=== PATIENT | male | born 1975 | race Caucasian/White ===

== ENCOUNTER 2019-07-31 21:09 | Emergency (ER) | payer BC ==
--- OUTSIDE RECORDS SUMMARY | 2019-07-31 21:10 | XMS REPORT | Clinical Summary ---
:1975 Author Organization [facility] Address [address] [place] [id number] Care Team Providers Name Role Phone Asked, No Pcp Primary Care Provider Unavailable Allergies Not on File Medications Not on file Active Problems Not on file Social History Tobacco Use Types Packs/Day Years Used Date Never Assessed Sex Assigned at Date Recorded Not on file Job Start Date Occupation Industry Not on file Not on file Not on file Travel History Travel Start Travel End No recent travel history available. 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
[2019-07-31 22:52] LABS: Absolute Lymphocytes (CBC) 1.2 K/uL (0.7-4.9); Basophils % 0.3 % (0-1.3); Hematocrit 40.7 % (39.6-49.0); Lymphocytes % 11.9 % (15.3-44.8); MPV 8.2 fL (7.6-11.3); RBC Red Blood Cell Count 4.71 M/uL (4.33-5.43)
[2019-07-31] MEDS ORDERED: PANTOPRAZOLE 40 MG INJ ONE ×2 (22:55→23:31)
[2019-07-31] MEDS ORDERED: NA CHLORIDE 0.9% 1,000 ML ONE ×2 (22:55→23:43)
[2019-07-31] MEDS ORDERED: ONDANSETRON 4 MG/2 ML VIAL ONE (22:55)
[2019-07-31 23:14] LABS: ALT/SGPT 49 U/L (12-78); AST/SGOT 23 U/L (15-37); Albumin 3.6 g/dL (3.4-5.0); Alkaline Phosphatase 52 U/L (45-117); BUN Blood Urea Nitrogen 24 mg/dL (7-18); Bicarbonate 23 mmol/L (21-32); Bilirubin Direct < 0.1 mg/dL (0-0.2); Bilirubin Total 0.3 mg/dL (0.2-1.0); Glucose Level 111 mg/dL (74-106); NT PRO-BNP 10 pg/mL (<125); Potassium 4.2 mmol/L (3.5-5.1); Protein, Total 6.3 g/dL (6.4-8.2); Sodium Level 139 mmol/L (136-145); Troponin (Emerg Dept Use Only) < 0.02 ng/mL (0.0-0.045)
[2019-07-31 23:19] LABS: Protime INR 1.01
[2019-07-31] MEDS ORDERED: NA CHLORIDE 0.9% 250 ML ONE (23:31)
--- NOTE | 2019-08-01 00:02 | EDPHYS ---
Physician Documentation [facility] Name: Ezequiel Prasad Age: 44 yrs Sex: Male : 1975 Arrival Date: 07/31/2019 Time: 21:12 Bed 4 Private MD: ANNEMARIE Physician Eris Amador HPI: 07/30 22:27 This 44 yrs old Male presents to ER via Wheelchair with complaints of Rectal cp Bleeding. 22:27 The patient presents to the emergency department with bleeding from the rectum/anus, cp that is moderate. 22:27 Onset: The symptoms/episode began/occurred today. Context: the patient patient reports cp having colonoscopy and endoscopy performed today by DR Ball in [place]. Patient reports having bowel movements of blood and briefly passing out. Associate signs and symptoms: Pertinent negatives: abdominal pain, constipation, dysuria, fever, vomiting chest pain. Historical: - Allergies: 21:23 No Known Allergies; ca1 - PSHx: 21:23 None; right leg; ca1 - Immunization history:: Adult Immunizations up to date. - Social history:: Smoking status: Patient denies any tobacco usage or history of. ROS: 22:30 Constitutional: Negative for body aches, chills, fever, poor PO intake. cp 22:30 Eyes: Negative for injury, pain, redness, and discharge. cp 22:30 ENT: Negative for ear pain, sore throat, difficulty swallowing, difficulty handling secretions. 22:30 Cardiovascular: Negative for chest pain. 22:30 Respiratory: Negative for cough, shortness of breath, wheezing. 22:30 Abdomen/GI: Positive for rectal bleeding, Negative for abdominal pain, vomiting, diarrhea, constipation. 22:30 : Negative for urinary symptoms. 22:30 Neuro: Positive for syncope, Negative for altered mental status, headache. 22:30 All other systems are negative. Exam: 22:35 Constitutional: The patient appears in no acute distress, alert, awake, cp non-diaphoretic, non-toxic, well developed, well nourished. 22:35 Head/Face: Normocephalic, atraumatic. cp 22:35 Eyes: Periorbital structures: appear normal, Pupils: equal, round, and reactive to light and accomodation, Extraocular movements: intact throughout, Conjunctiva: normal, no exudate, no injection, Sclera: no appreciated abnormality, Lids and lashes: appear normal, bilaterally. 22:35 ENT: External ear(s): are unremarkable, Nose: is normal, Mouth: Lips: moist, Oral mucosa: pink and intact, moist, Posterior pharynx: is normal, airway is patent. 22:35 Chest/axilla: Inspection: normal, Palpation: is normal, no crepitus, no tenderness. 22:35 Cardiovascular: Rate: normal, Rhythm: regular, Heart sounds: murmur, not appreciated, Edema: is not appreciated, JVD: is not appreciated. 22:35 Respiratory: the patient does not display signs of respiratory distress, Respirations: normal, no use of accessory muscles, no retractions, labored breathing, is not present, Breath sounds: are clear throughout, no decreased breath sounds. 22:35 Abdomen/GI: Inspection: abdomen appears normal, Bowel sounds: active, all quadrants, Palpation: abdomen is soft and non-tender, in all quadrants, voluntary guarding, is not appreciated, involuntary guarding, is not appreciated. 22:35 Back: pain, is absent, ROM is normal. 22:35 Neuro: Orientation: to person, place \T\ time. Mentation: is normal, Cerebellar function: is grossly normal, Motor: moves all fours, strength is normal, Sensation: is normal. 23:01 ECG was reviewed by the Attending Physician. cp 23:12 : Rectal exam: Stool: maroon, Guaiac testing: results were positive for occult blood. cp Vital Signs: 21:18 BP 114 / 84; Pulse 96; Resp 18 S; Temp 98.7(O); Pulse Ox 99% on R/A; Weight 88.45 kg ca1 (R); Height 5 ft. 11 in. (180.34 cm) (R); Pain 0/10; 23:11 BP 121 / 80; Pulse 86; Resp 18; Pulse Ox 99% on R/A; ea 07/31 01:30 BP 127 / 84; Pulse 88; Resp 18; Temp 98.2; Pulse Ox 100% ; ea 07/30 21:18 Body Mass Index 27.20 (88.45 kg, 180.34 cm) ca1 MDM: 07/30 21:53 Patient medically screened. joce 23:00 Differential diagnosis: hemorrhoids, fissure, abscess, lower GI bleed. cp 23:15 Physician consultation: DR Ball, GI physician who performed endoscopy and cp colonoscopy, requests transfer to [facility] or [facility]. 23:57 Data reviewed: vital signs, nurses notes, lab test result(s), EKG, radiologic studies, cp plain films, I have discussed the patient's presentation/case with the attending Emergency Department Physician;. Test interpretation: by ED physician or midlevel provider: ECG, chest xray negative for acute findings. Response to treatment: the patient's symptoms have markedly improved after treatment. 07/31 00:00 Physician consultation: was contacted at 23:30, regarding regarding transfer, [facility] patient's condition, DR Feng. 07/30 22:29 Order name: Basic Metabolic Panel; Complete Time: 23:20 cp 07/30 22:29 Order name: CBC with Diff; Complete Time: 23:14 07/30 23:14 Interpretation: Normal except: YARIEL% 79.6; LYM% 11.9. 07/30 22:29 Order name: LFT's; Complete Time: 23:20 cp 07/30 22:29 Order name: Magnesium; Complete Time: 23:20 cp 07/30 22:29 Order name: NT PRO-BNP; Complete Time: 23:20 cp 07/30 22:29 Order name: PT-INR; Complete Time: 23:54 cp 07/30 22:29 Order name: Troponin (emerg Dept Use Only); Complete Time: 23:20 cp 07/30 22:29 Order name: XRAY Chest (1 view) 07/30 22:29 Order name: Ptt, Activated; Complete Time: 23:54 cp 07/30 22:29 Order name: Type And Screen cp 07/30 23:21 Order name: CT Abd/Pelvis - IV Contrast Only 07/31 00:24 Order name: Urine Dipstick--Ancillary (enter results) ds4 07/30 21:45 Order name: Urine Dipstick-Ancillary (obtain specimen); Complete Time: 00:23 ea 07/30 22:29 Order name: Cardiac monitoring; Complete Time: 23:00 cp 07/30 22:29 Order name: EKG - Nurse/Tech; Complete Time: 22:56 cp 07/30 22:29 Order name: IV Saline Lock; Complete Time: 22:43 cp 03 22:29 Order name: Labs collected and sent; Complete Time: 22:43 cp 03 22:29 Order name: O2 Per Protocol; Complete Time: 22:43 cp 03 22:29 Order name: O2 Sat Monitoring; Complete Time: 22:43 cp EC/03 23:01 Rate is 72 beats/min. Rhythm is regular. ND interval is normal. QRS interval is normal. cp QT interval is normal. T waves are Inverted in lead aVR. Interpreted by me. Reviewed by me. Administered Medications: 22:53 Drug: Zofran (Ondansetron) 4 mg Route: IVP; Site: right antecubital; ea 23:00 Follow up: Response: No adverse reaction ea 22:55 Drug: NS 0.9% 1000 ml Route: IV; Rate: 1 bolus; Site: right antecubital; ea 07/31 00:11 Follow up: Response: No adverse reaction; IV Status: Completed infusion; IV Intake: ea 1000ml 07/30 22:55 Drug: ProTONIX 40 mg Route: IVP; Site: right antecubital; ea 23:00 Follow up: Response: No adverse reaction ea 23:31 Drug: ProTONIX 8 mg/hr Route: IV; Rate: 25 ml/hr; Site: right antecubital; ea 07/31 00:41 Follow up: IV Status: Infusion continued upon transfer ea 00:04 Drug: NS 0.9% 1000 ml Route: IV; Rate: 1 bolus; Site: right antecubital; ea 01:21 Follow up: Response: No adverse reaction; IV Status: Completed infusion; IV Intake: ea 1000ml Disposition: :02 Co-signature as Attending Physician, Eris Amador MD I agree with the assessment and [facility] plan of care. Disposition: 08/01/19 00:00 Transfer ordered to [facility]. Diagnosis are Syncope and collapse, Gastrointestinal hemorrhage, unspecified. - Reason for transfer: Higher level of care. - Accepting physician is Dr Feng. - Condition is Stable. - Problem is new. - Symptoms have improved. Signatures: Dispatcher [employer] Eris Parra MD MD cha Page, Corey, PA PA cp Antunez, Elena RN Selene Conley ea, RN RN ca1 Corrections: (The following items were deleted from the chart) 01:37 00:00 08/01/2019 00:00 Transfer ordered to [facility]. Diagnosis is ea Syncope and collapse; Gastrointestinal hemorrhage, unspecified. Reason for transfer: Higher level of care. Accepting physician is Dr Feng. Condition is Stable. Problem is new. Symptoms have improved. cp 21:34 00:00 Physician consultation: was contacted at 23:30, regarding regarding transfer, [facility] in [place] patient's condition, DR Pagan, mabel
--- NOTE | 2019-08-01 00:02 | ER ---
Nurse's Notes [facility] Name: Ezequiel Prasad Age: 44 yrs Sex: Male : 1975 Arrival Date: 07/31/2019 Time: 21:12 Bed 4 Private MD: Diagnosis: Syncope and collapse;Gastrointestinal hemorrhage, unspecified Presentation: 07/30 21:18 Chief complaint: Spouse and/or significant other states: He had colonoscopy done this ca1 morning. They removed a polyp. At around 1600, he started having bloody stool stool, bright in color and approx a cup in quantity. BM x 7 since 1600. He started feeling dizzy, clammy,m sweaty and feels like he was going to pass out. Coronavirus screen: Proceed with normal triage. Patient denies a cough. Patient denies shortness of breath or difficulty breathing. Patient denies measured and/or subjective temperature greater than 100.4F prior to today's visit. Patient denies travel on a cruise ship or to a country the [facility] currently lists as an affected area. Patient denies contact with known and/or suspected case of COVID-19. Ebola Screen: Patient negative for fever greater than or equal to 101.5 degrees Fahrenheit, and additional compatible Ebola Virus Disease symptoms Patient denies exposure to infectious person. Patient denies travel to an Ebola-affected area in the 21 days before illness onset. No symptoms or risks identified at this time. Initial Sepsis Screen: Does the patient meet any 2 criteria? No. Patient's initial sepsis screen is negative. Does the patient have a suspected source of infection? No. Patient's initial sepsis screen is negative. Risk Assessment: Do you want to hurt yourself or someone else? Patient reports no desire to harm self or others. Onset of symptoms was July 31, 2019 at 16:00. 21:18 Method Of Arrival: Wheelchair ca1 21:18 Acuity: BEVERLY 3 ca1 Historical: - Allergies: 21:23 No Known Allergies; ca1 - PSHx: 21:23 None; right leg; ca1 - Immunization history:: Adult Immunizations up to date. - Social history:: Smoking status: Patient denies any tobacco usage or history of. Screenin:03 Abuse screen: Denies threats or abuse. Nutritional screening: No deficits noted. ea Tuberculosis screening: No symptoms or risk factors identified. Fall Risk IV access (20 points). Assessment: 22:45 General: Appears uncomfortable, Behavior is appropriate for age. Pain: Denies pain. ea Neuro: Level of Consciousness is awake, alert, obeys commands, Oriented to person, place, time, situation. Cardiovascular: Patient's skin is warm and dry. Respiratory: Airway is patent Respiratory effort is even, unlabored, Respiratory pattern is regular, symmetrical. GI: Reports bloody stool. Derm: Skin is dry, Skin is pale, Skin temperature is warm. 23:11 Reassessment: Patient and/or family updated on plan of care and expected duration. Pain ea level reassessed. Patient is alert, oriented x 3, equal unlabored respirations, skin warm/dry/pink. 23:30 Reassessment: pt on the phone, requesting updates, pt primary nurse busy with this sg pt care, pt reports authorization code, updated pt , will call back with update on definitive information about the pending transfer, pt stated understanding. 07/31 00:42 Reassessment: Patient appears in no apparent distress at this time. pt contact sg number [phone]. 00:46 Reassessment: Patient and/or family updated on plan of care and expected duration. Pain ea level reassessed. Patient is alert, oriented x 3, equal unlabored respirations, skin warm/dry/pink. Report called to Taya GUILLEN at [facility]. 01:21 Reassessment: Patient and/or family updated on plan of care and expected duration. Pain ea level reassessed. Patient is alert, oriented x 3, equal unlabored respirations, skin warm/dry/pink. Awaiting on EMS for transfer. Vital Signs: 07/30 21:18 BP 114 / 84; Pulse 96; Resp 18 S; Temp 98.7(O); Pulse Ox 99% on R/A; Weight 88.45 kg ca1 (R); Height 5 ft. 11 in. (180.34 cm) (R); Pain 0/10; 23:11 BP 121 / 80; Pulse 86; Resp 18; Pulse Ox 99% on R/A; ea 07/31 01:30 BP 127 / 84; Pulse 88; Resp 18; Temp 98.2; Pulse Ox 100% ; ea 07/30 21:18 Body Mass Index 27.20 (88.45 kg, 180.34 cm) ca1 ED Course: 07/30 21:12 Patient arrived in ED. cl3 21:22 Triage completed. ca1 21:23 Arm band placed on right wrist. ca1 21:53 Eris Santa PA is PHCP. cp 21:53 Eris Amador MD is Attending Physician. cp 22:02 Nette Hercules, WILMER is Primary Nurse. ea 22:30 Patient has correct armband on for positive identification. Bed in low position. Call ea light in reach. Side rails up X2. monitoring engineer on. Pulse ox on. NIBP on. 22:30 Inserted saline lock: 18 gauge in left antecubital area, using aseptic technique. Blood ds4 collected. 22:33 Inserted saline lock: 18 gauge in right antecubital area, using aseptic technique. ds4 22:43 Type And Screen Sent. ds4 22:43 Ptt, Activated Sent. ds4 22:43 Troponin (emerg Dept Use Only) Sent. ds4 22:43 CBC with Diff Sent. ds4 22:51 XRAY Chest (1 view) In Process Unspecified. EDMS 07/31 00:17 CT Abd/Pelvis - IV Contrast Only In Process Unspecified. EDMS 00:48 No provider procedures requiring assistance completed. Patient transferred, IV remains ea in place. Administered Medications: 07/30 22:53 Drug: Zofran (Ondansetron) 4 mg Route: IVP; Site: right antecubital; ea 23:00 Follow up: Response: No adverse reaction ea 22:55 Drug: NS 0.9% 1000 ml Route: IV; Rate: 1 bolus; Site: right antecubital; ea 07/31 00:11 Follow up: Response: No adverse reaction; IV Status: Completed infusion; IV Intake: ea 1000ml 07/30 22:55 Drug: ProTONIX 40 mg Route: IVP; Site: right antecubital; ea 23:00 Follow up: Response: No adverse reaction ea 23:31 Drug: ProTONIX 8 mg/hr Route: IV; Rate: 25 ml/hr; Site: right antecubital; ea 07/31 00:41 Follow up: IV Status: Infusion continued upon transfer ea 00:04 Drug: NS 0.9% 1000 ml Route: IV; Rate: 1 bolus; Site: right antecubital; ea 01:21 Follow up: Response: No adverse reaction; IV Status: Completed infusion; IV Intake: ea 1000ml Intake: 00:11 IV: 1000ml; Total: 1000ml. ea 01:21 IV: 1000ml; Total: 2000ml. ea Outcome: 00:00 ER care complete, transfer ordered by . cp 00:48 Instructed on the need for transfer, Demonstrated understanding of instructions. ea 01:36 Transferred by ground EMS Transfer form completed. ea 01:36 Condition: stable 01:37 Patient left the ED. ea Signatures: Dispatcher [employer] EDRoyer Damon RN RN Derick Montes ds4 Eris Santa PA PA cp Antunez, Elena RN Selene Conley ea RN RN Vaibhav Kellogg cl3
[2019-08-01 01:44] VITALS: TEMP 98.7; O2SAT 99
[2019-08-01 01:46] VITALS: BP 121/80
[2019-08-01 02:05] LABS: Urine Blood NEGATIVE (NEG); Urine Glucose NEGATIVE (NEG); Urine Protein NEGATIVE (NEG); Urine Specific Gravity 1.025 (1.005-1.030)
--- NOTE | 2019-08-01 08:00 | RAD REPORT ---
EXAM DESCRIPTION: [place] Single View07/31/2019 10:50 pm CLINICAL HISTORY: Abdominal pain/rectal bleeding COMPARISON: 2017 FINDINGS: The lungs appear clear of acute infiltrate. The heart is normal size IMPRESSION: No acute abnormalities displayed
--- NOTE | 2019-08-01 08:47 | RAD REPORT ---
EXAM DESCRIPTION: CT - Abdomen Pelvis W Contrast - 08/01/2019 5:47 am CLINICAL HISTORY: The patient is 44 years old and is Male; rectal bleeding TECHNIQUE: Axial computed tomography images of the abdomen and pelvis with intravenous contrast. S agittal and coronal reformatted images were created and reviewed. This CT exam was performed using one or more of the following dose reduction techniques: automated exposure control, adjustment of t he mA and/or kV according to patient size, and/or use of iterative reconstruction technique. COMPARISON: No relevant prior studies available. FINDINGS: LUNG BASES: Minimal dependent densities in the lung bases are present. ABDOMEN: LIVER: Scattered sub-5 mm low attenuating foci within the liver present which are too small to a ccurately characterize. GALLBLADDER AND BILE DUCTS: No calcified stones. No ductal dilation. PANCREAS: No ductal dilation. No mass. SPLEEN: Unremarkable. ADRENALS: Unremarkable. No mass. KIDNEYS AND URETERS: Punctate right intrarenal calcification is present. The kidneys enhance sym metrically. No obstructing renal or ureteral calculus is seen. STOMACH AND BOWEL: The stomach is minimally distended with food contents. The small bowel is nor mal in caliber. Liquid stool is noted throughout the colon. There is no bowel obstruction. PELVIS: APPENDIX: The appendix is normal in caliber without surrounding inflammation. BLADDER: Unremarkable. No mass. REPRODUCTIVE: Unremarkable as visualized. ABDOMEN and PELVIS: INTRAPERITONEAL SPACE: Unremarkable. No free air. No significant fluid collection. BONES/JOINTS: No acute fracture. SOFT TISSUES: The soft tissues are normal. VASCULATURE: Unremarkable. No abdominal aortic aneurysm. LYMPH NODES: Unremarkable. No enlarged lymph nodes. IMPRESSION: Liquid stool throughout the colon which can be seen with a clinical history of diarrhea. No mucosal thickening. Electronically signed by: Mireille Elder MD 08/01/2019 12:29 AM CDT Due to temporary technical issues with the PACS/Fluency reporting system, reports are being signed by the in house radiologist without review as a courtesy to ensure prompt reporting. The interpreting r adiologist is fully responsible for the content of the report.
== END 2019-08-01 01:37 | disposition short-term general hospital (02) ==
LOC: ER 21:09
DX: K92.2 Gastrointestinal hemorrhage, unspecified (principal)
CPT/HCPCS: 96365; 96361; 85025; 80048; 36415; 86900; 83735; 86850; 85610; 86901; 80076; 85730; 81003; 84484; 83880; 74177; 71045; 96375; 99285; Q9967; C9113 ×2; J7030 ×3; J2405